=== PATIENT | male | born 1945 | race Two or more races ===

== ENCOUNTER 2019-08-19 11:45 | Inpatient (IN) | payer OTHER ==
[~2019-08-19] VITALS: Ht 160 cm; Wt 57.2 kg
[~2019-08-19 11:45] MED LIST: CARDIZEM CD180 MG PO; COUMADIN2.5 MG PO; CRESTOR10 MG PO; MICROZIDE12.5 MG PO; PLETAL50 MG PO; PROTONIX40 MG PO; TAMBOCOR100 MG PO; VASOTEC10 MG NGT
[2019-08-19] MEDS ORDERED: CARDIZEM CD240 MG (13:17)
[2019-08-19] MEDS ORDERED: NEURONTIN300 MG (13:19)
[2019-08-26] MEDS ORDERED: CLONAZEPAM0.5 MG PO (10:50)
[2019-08-26] MEDS ORDERED: COLACE100 MG PO (10:50)
[2019-08-26] MEDS ORDERED: MEDROLPACK PO (10:50)
[2019-08-26] MEDS ORDERED: PERCOCET 5-3251 EACH PO (10:50)
== END 2019-08-28 10:38 | disposition home or self-care (01) | DRG 472 ==
LOC: SURH 08-26 05:00 → O/R 08-26 05:00 → SURG 08-26 07:00 → O/R 08-26 11:45 → SURH 08-26 13:24
PROVIDERS: ADMIT Orthopaedic Surgery Orthopaedic Surgery of the Spine
PROC: 0RG2070 Fusion of 2 or more Cervical Vertebral Joints with Autologous Tissue Substitute, Anterior Approach, Anterior Column, Open Approach (ICD-10-PCS; 2019-08-26)
PROC: 0RT30ZZ Resection of Cervical Vertebral Disc, Open Approach (ICD-10-PCS; 2019-08-26)
PROC: 07DS3ZZ Extraction of Vertebral Bone Marrow, Percutaneous Approach (ICD-10-PCS; 2019-08-26)
PROC: 0RG20A0 Fusion of 2 or more Cervical Vertebral Joints with Interbody Fusion Device, Anterior Approach, Anterior Column, Open Approach (ICD-10-PCS; principal; 2019-08-26 07:00)
DX: M50.021 Cervical disc disorder at C4-C5 level with myelopathy (principal); M47.12 Other spondylosis with myelopathy, cervical region; I10 Essential (primary) hypertension